=== PATIENT | female | born 1940 | race Caucasian/White ===

== ENCOUNTER 2021-07-20 00:15 | Emergency (ER) | payer OTHER ==
[2021-07-20 01:27] LABS: BASOPHIL 0.6 % (0-2); EOSINOPHIL 0.1 % (0-7); HCT 35.9 % (37.0-47.0); HGB 11.4 g/dl (12.5-16.0); LYMPHOCYTE 23.1 % (15-48); MCHC 31.8 g/dL (32.0-36.0); MCV 91.3 fL (78.0-100.0); MONOCYTE 11.7 % (0-12); MPV 11.3 fL (6.0-9.5); NEUTROPHIL 64.2 % (41-80); NRBC 0; PLT 267 K/uL (150-400); RBC 3.93 M/uL (4.20-5.40); RDW 14.3 % (11.5-14.0); WBC 7.2 K/uL (4.0-10.5)
[2021-07-20 01:38] LABS: BUN/CREAT RATIO (CALC) 29.2 RATIO; CREATININE 0.72 mg/dL (0.51-0.95); POTASSIUM 3.5 mmol/L (3.5-5.1)
[2021-07-20 01:57] LABS: BILIRUBIN NEGATIVE (NEGATIVE); BLOOD NEGATIVE Ery/uL (NEGATIVE); CLARITY CLEAR (CLEAR); COLOR YELLOW (YELLOW); GLUCOSE (U) NORMAL (NORMAL); LEUKOCYTES NEGATIVE Leu/uL (NEGATIVE); NITRITE NEGATIVE (NEGATIVE); PROTEIN NEGATIVE (NEGATIVE); UROBILINOGEN 0.2 mg/dL (0.2-1.0); pH 6.5 (5.0-9.0)
== END 2021-07-20 07:07 | disposition home or self-care (01) ==
LOC: FER 00:15
PROVIDERS: Emergency Medicine Emergency Medical Services
DX: U07.1 COVID-19 (principal); F03.90 Unspecified dementia, unspecified severity, without behavioral disturbance, psychotic disturbance, mood disturbance, and anxiety; R60.9 Edema, unspecified; E11.9 Type 2 diabetes mellitus without complications; I10 Essential (primary) hypertension; F17.210 Nicotine dependence, cigarettes, uncomplicated; Z88.5 Allergy status to narcotic agent; Z88.6 Allergy status to analgesic agent; Z88.8 Allergy status to other drugs, medicaments and biological substances
CPT/HCPCS: 36415; 71250; 80048; 81003; 85025; 85379; 87088; 93971; J2060